=== PATIENT | female | born 1950 | race Caucasian/White ===

== ENCOUNTER 2024-05-17 19:20 | Emergency (ER) | payer OTHER, BC ==
[2024-05-17 19:52] VITALS: BP 166/99; PULSE 72; RESP 18; TEMP 98.1; BMI 23.1
[2024-05-17] MEDS ORDERED: ONDANSETRON 4 MG/2 ML VIAL ONE (19:52)
[2024-05-17] MEDS: LACTATED RINGERS SOLUTION 1000 ML INFUS.BAG IV ONE (19:54)
[2024-05-17] MEDS: ONDANSETRON 4 MG/2 ML VIAL IVPUSH ONE (19:54)
[2024-05-17 20:01] LABS: HEMATOCRIT 38.2 % (32.4-45.2); HEMOGLOBIN 13.4 G/dL (10.7-15.3); MCHC 35.1 g/dl (32.0-36.0); MEAN CELL VOLUME 91.1 fl (80-96); MEAN PLT VOLUME 10.4 fl (7.5-11.1); RBC 4.19 10^6/uL (3.60-5.2); RDW 14.2 % (11.6-15.6); WHITE BLOOD COUNT 7.3 10^3/uL (4.0-10.8)
[2024-05-17 20:28] LABS: ALBUMIN 4.2 g/dl (3.4-5.0); BILIRUBIN,TOTAL 0.3 mg/dl (0.2-1); CALCIUM 9.1 mg/dl (8.5-10.1); CREATININE 0.7 mg/dl (0.6-1.3)
[2024-05-17] MEDS ORDERED: ACETAMINOPHEN INJECTION 100 ML ONE (20:56)
[2024-05-17] MEDS: ACETAMINOPHEN 1000 MG/100 ML BAG IVPB ONE (20:58)
[2024-05-17 22:44] LABS: HIV INTERPRETATION NEGATIVE (NEGATIVE)
== END 2024-05-17 23:30 | disposition home or self-care (01) ==
LOC: FER 19:20
PROC: 3E033NZ Introduction of Analgesics, Hypnotics, Sedatives into Peripheral Vein, Percutaneous Approach (ICD-10-PCS; principal; 2024-05-17)
PROC: 3E033GC Introduction of Other Therapeutic Substance into Peripheral Vein, Percutaneous Approach (ICD-10-PCS; 2024-05-17)
DX: K59.00 Constipation, unspecified (principal); K29.70 Gastritis, unspecified, without bleeding; R10.12 Left upper quadrant pain; R10.32 Left lower quadrant pain; R11.2 Nausea with vomiting, unspecified
CPT/HCPCS: 36415; 71045-TC-FY; 74177-TC; 80053; 81003; 81015; 83690; 84484; 85027; 86803; 87086; 87389; 93005; 99285-25; J0131; Q9967